=== PATIENT | female | born 1950 | race Asian ===

== ENCOUNTER 2019-08-06 17:38 | Emergency (ER) | payer OTHER, MEDICAID ==
[~2019-08-06] VITALS: Ht 165.1 cm; Wt 68.0 kg
[2019-08-06 17:40] VITALS: BP_SYST 147
[2019-08-06] MEDS ORDERED: DOCU-144 PO (18:07)
[2019-08-06] MEDS ORDERED: LACT-47 PO (18:07)
[2019-08-06] MEDS ORDERED: POTA20TA83 PO (18:07)
[2019-08-06] MEDS ORDERED: UTI-STAT PO (18:07)
[2019-08-06] MEDS ORDERED: CRAN450T9 PO (18:07)
[2019-08-06] MEDS ORDERED: FURO-150 PO (18:07)
[2019-08-06 18:18] LABS: BASOPHILS % (AUTO) 0.2 % (0.0-2.0); HEMOGLOBIN 13.7 g/dL (12.0-16.0); LYMPHOCYTES # (AUTO) 1.5 K/uL (1.0-5.5); LYMPHOCYTES % (AUTO) 32.2 % (20.5-51.5); MEAN CORPUSCULAR HEMOGLOBIN 32 pg (27-31); MEAN CORPUSCULAR HGB CONC 33 % (32-36); MEAN CORPUSCULAR VOLUME 97 fL (79.0-98.0); MONOCYTES # (AUTO) 0.3 K/uL (0.0-1.0); NEUTROPHILS # (AUTO) 2.8 K/uL (1.8-7.7); NEUTROPHILS % (AUTO) 59.6 % (40.0-70.0); PLATELET COUNT (AUTO) 249 K/uL (130-430); RED BLOOD CELL COUNT(AUTO) 4.25 MIL/uL (4.2-6.2); RED CELL DISTRIBUTION WIDTH 13.4 % (9.0-15.0); WHITE BLOOD COUNT (AUTO) 4.7 K/uL (4.8-10.8)
[2019-08-06 18:43] LABS: CHOLESTEROL 193 mg/dL (<200); HDL CHOLESTEROL 74 mg/dL (>55); LDL CHOLESTEROL 97 mg/dL (<100); TRIGLYCERIDES 87 mg/dL (30-150)
[2019-08-06 18:44] LABS: ANION GAP 6 (5-15); CHLORIDE 103 mmol/L (98-107); GLUCOSE 92 mg/dL (70-99); SODIUM SERUM 137 mmol/L (136-145)
[2019-08-06 18:45] LABS: ALANINE AMINOTRANSFERASE 23 U/L (12-78); ALBUMIN 3.8 g/dL (3.4-4.8); ASPARTATE AMINOTRANSFERASE 16 U/L (10-37); CREATININE 0.81 mg/dL (0.55-1.30); TOTAL BILIRUBIN 0.4 mg/dL (0.0-1.0); UREA NITROGEN, BLOOD 20 mg/dL (8-21)
[2019-08-06 18:46] LABS: ACETAMINOPHEN 1 ug/mL (1-30); ALCOHOL, BLOOD < 3 mg/dL (<10)
[2019-08-06 18:54] LABS: BILIRUBIN,URINE NEGATIVE (NEGATIVE); BLOOD, URINE NEGATIVE (NEGATIVE); CLARITY/URINE CLEAR (CLEAR); COLOR,URINE YELLOW (YELLOW); GLUCOSE,URINE NEGATIVE (NEGATIVE); KETONES,URINE NEGATIVE (NEGATIVE); LEUKOCYTE ESTERASE ,URINE NEGATIVE (NEGATIVE); NITRITE, URINE NEGATIVE (NEGATIVE); PROTEIN URINE NEGATIVE (NEGATIVE); UROBILINOGEN,URINE 0.2 (0.2-1.0)
[2019-08-06 19:10] LABS: BARBITURATE, URINE NEGATIVE (NEG <=200); BENZODIAZEPINE, URINE NEGATIVE (NEG <=150); CANNABINOID, URINE NEGATIVE (NEG <=50); COCAINE, URINE NEGATIVE (NEG <=150); METHAMPHETAMINES SCREEN,URINE NEGATIVE (NEG <=500); OPIATE, URINE NEGATIVE (NEG <=100); PHENCYCLIDINE SCREEN,URINE NEGATIVE (NEG <=25); UR TRICYCLIC ANTIDEPRESSANTS NEGATIVE (NEG <=300); URINE AMPHETAMINE NEGATIVE (NEG <=500); URINE METHADONE NEGATIVE (NEG <=200); URINE OXYCODONE SCREEN NEGATIVE (NEG <=100); URINE PROPOXYPHENE SCREEN NEGATIVE (NEG <=300)
[2019-08-06 21:31] VITALS: BP_SYST 138
== END 2019-08-06 21:31 ==
LOC: SED 17:38
DX: R45.6 Violent behavior (principal); F32.9 Major depressive disorder, single episode, unspecified; J44.9 Chronic obstructive pulmonary disease, unspecified; I50.9 Heart failure, unspecified; Z79.899 Other long term (current) drug therapy
CPT/HCPCS: 36415; 80053; 80061; 80307; 81003; 83036; 85025; 87081; 99285; G0480; G0481; G0482